=== PATIENT | female | born 1995 | race Caucasian/White ===

== ENCOUNTER → 2020-06-19 | Outpatient (CLI) | payer OTHER ==
[~2020-06-19] MED LIST: ONDA4TAB10 PO; PROG50VI INJ; progesterone PO
[2020-06-19 14:46] LABS: BASOPHILS % (AUTO) 1 % (0-1); EOSINOPHILS % (AUTO) 2 % (1-7); LYMPHOCYTES % (AUTO) 42 % (22-44); MEAN CORPUSCULAR HGB CONC 33.7 g/dL (32.4-35.8); MEAN PLATELET VOLUME 7.6 fL (7.4-10.4); MONOCYTES % (AUTO) 8 % (2-9); NEUTROPHILS % (AUTO) 48 % (42-75); PLATELET COUNT 272 x10^3/uL (130-400); RED BLOOD COUNT 4.73 x10^6/uL (3.82-5.3); RED CELL DISTRIBUTION WIDTH 13.8 % (9.6-15.2)
[2020-06-19 15:02] LABS: MD NO
== END | disposition home or self-care (01) ==
LOC: STAR 13:49
PROVIDERS: ATTEND Obstetrics & Gynecology Maternal & Fetal Medicine
DX: Z01.812 Encounter for preprocedural laboratory examination (principal); Z20.828 Contact with and (suspected) exposure to other viral communicable diseases
CPT/HCPCS: 85025; 86901; 87635

== ENCOUNTER 2020-06-23 14:19 | Day surgery (SDC) | payer OTHER ==
[~2020-06-23] VITALS: Ht 157.5 cm; Wt 79.0 kg
[2020-06-23] MEDS ORDERED: CHLORHEXIDINE 15 ML UDC MM STA (14:46)
[2020-06-23 14:58] VITALS: BP 123/79
[2020-06-23] MEDS ORDERED: LACTATED RINGERS 1,000 ML IV SCH (15:00)
[2020-06-23] MEDS ORDERED: OXYTOCIN 10 UNITS/ML, 1ML ONE (16:13)
[2020-06-23] MEDS ORDERED: SILVER NITRATE STICK TP ONE (16:13)
[2020-06-23] MEDS ORDERED: METHYLERGONOVINE 0.2 MG/ML IM ONE (16:13)
[2020-06-23] MEDS ORDERED: SODIUM CHLORIDE 0.9% 0 ML ONE (16:13)
[2020-06-23] MEDS ORDERED: MISOPROSTOL 200 MCG TABLET ONE (16:13)
[2020-06-23] MEDS ORDERED: VASOPRESSIN 20 UNIT/ML, 1ML ONE (16:14)
[2020-06-23] MEDS ORDERED: MIDAZOLAM 1 MG/ML, 2ML ONE (16:18)
[2020-06-23] MEDS ORDERED: FENTANYL PF 100 MCG/2ML ONE ×2 (16:18→17:28)
[2020-06-23] MEDS ORDERED: DEXAMETHASONE 4 MG/ML, 1ML ONE (16:23)
[2020-06-23] MEDS ORDERED: ONDANSETRON 2MG/ML, 2ML ONE (16:23)
[2020-06-23] MEDS ORDERED: PROPOFOL 10 MG/ML, 20ML ONE (16:23)
[2020-06-23] MEDS ORDERED: CEFAZOLIN 1,000 MG ONE (16:23)
[2020-06-23] MEDS ORDERED: ACETAMINOPHEN 325 MG TABLET PO PRN ×2 (17:00→19:00)
[2020-06-23] MEDS ORDERED: DIAZEPAM 5 MG/ML, 2ML IVPush PRN (17:00)
[2020-06-23] MEDS ORDERED: FENTANYL PF 100 MCG/2ML IV PRN (17:00)
[2020-06-23] MEDS ORDERED: ONDANSETRON 2MG/ML, 2ML IVPush PRN (17:00)
[2020-06-23] MEDS ORDERED: MEPERIDINE/PF 25MG/0.5ML IVPush PRN (17:00)
[2020-06-23] MEDS ORDERED: OXYcodone 5 MG/5 ML ORAL.SOL UDC PO PRN (17:00)
[2020-06-23] MEDS ORDERED: HYDROmorphone 1 MG/ML, 1ML INJ IVPush PRN (17:00)
[2020-06-23] MEDS ORDERED: PROMETHAZINE 25 MG/ML, 1ML IVPush PRN (17:00)
[2020-06-23] MEDS ORDERED: DIPHENHYDRAMINE 50 MG/ML, 1ML IVPush PRN (17:00)
[2020-06-23] MEDS ORDERED: OXYcodone 5 MG/5 ML ORAL.SOL UDC ONE (17:28)
[2020-06-23] MEDS ORDERED: ACETAMINOPHEN 500 MG TABLET ONE (18:51)
[2020-06-23] MEDS ORDERED: ACETAMINOPHEN 325 MG TABLET ONE (18:52)
[2020-06-23] MEDS ORDERED: IBUPROFEN 800 MG TABLET PO ONE (19:00)
[2020-06-23] MEDS ORDERED: ACET325T14 PO (19:00)
== END 2020-06-23 19:10 | disposition home or self-care (01) ==
LOC: OR 14:19
PROVIDERS: ATTEND Obstetrics & Gynecology Maternal & Fetal Medicine
DX: O02.1 Missed abortion (principal)
CPT/HCPCS: 36415; 59820; 86850; 86900; 88305; J0690; J1100; J2250; J2405; J2704; J3010; J2210; J2590

== ENCOUNTER 2021-02-19 06:10 | Observation (INO) | payer OTHER ==
[~2021-02-19] VITALS: Ht 157.5 cm; Wt 86.0 kg
[~2021-02-19 06:10] MED LIST changes: +ACET325T14 PO
[2021-02-19 06:50] LABS: MICROSCOPIC INDICATED
[2021-02-19 06:55] VITALS: BP 119/56
[2021-02-19] MEDS ORDERED: LACTATED RINGERS 500 ML IVBOLUS ONE (12:00)
[2021-02-19] MEDS: LACTATED RINGERS 1,000 ML IV SCH ×3 (12:01→22:00)
[2021-02-19 13:26] LABS: BASOPHILS % (AUTO) 0 % (0-1); EOSINOPHILS % (AUTO) 1 % (1-7); LYMPHOCYTES % (AUTO) 15 % (22-44); MEAN CORPUSCULAR HEMOGLOBIN 24.8 pg (27.0-34.8); MEAN CORPUSCULAR HGB CONC 33.3 g/dL (32.4-35.8); MONOCYTES % (AUTO) 5 % (2-9); NEUTROPHILS % (AUTO) 80 % (42-75); PLATELET COUNT 270 x10^3/uL (130-400); RED BLOOD COUNT 4.26 x10^6/uL (3.82-5.3)
[2021-02-19 13:42] LABS: INTERNATIONAL NORMALIZED RATIO 0.96 (0.93-1.1); PROTHROMBIN TIME 10.3 Seconds (9.6-11.5)
[2021-02-19] MEDS: NITROFURANTOIN (MACROBID) 100 MG CAPSULE PO SCH (23:03)
[2021-02-20] MEDS: LACTATED RINGERS 1,000 ML IV SCH (06:18)
[2021-02-20] MEDS ORDERED: NITR100C6 PO (06:49)
[2021-02-20] MEDS: NITROFURANTOIN (MACROBID) 100 MG CAPSULE PO SCH (07:11)
== END 2021-02-20 07:46 | disposition home or self-care (01) ==
LOC: LDOP 06:10 → NSY 09:22 → INTOOBSV 09:22 → LDIP 10:56
PROVIDERS: ADMIT Obstetrics & Gynecology Maternal & Fetal Medicine; ATTEND Obstetrics & Gynecology Maternal & Fetal Medicine
DX: O46.92 Antepartum hemorrhage, unspecified, second trimester (principal); Z20.822 Contact with and (suspected) exposure to COVID-19; O99.282 Endocrine, nutritional and metabolic diseases complicating pregnancy, second trimester; E86.0 Dehydration; Z3A.23 23 weeks gestation of pregnancy
CPT/HCPCS: 76815; 76817; 81001; 85025; 85384; 85610; 85730; 87086; 87635; 96360; 96361; G0378; J7120